=== PATIENT | female | born 1995 | race African-American/Black ===

== ENCOUNTER 2021-05-29 11:42 | Emergency (ER) | payer BC ==
[~2021-05-29] VITALS: Ht 157.5 cm; Wt 127.0 kg
[2021-05-29 12:17] LABS: ABSOLUTE NEUTROPHILS 2.9 thou/uL (1.4-8.2); BASOPHILS 1.2 % (0.0-2.0); EOSINOPHILS 1.7 % (0.0-3.0); HEMATOCRIT 39.2 % (37.0-47.0); LYMPHOCYTES 38.9 % (24.0-44.0); MCH 28.5 pg (26.0-34.0); MCHC 33.1 g/dL (28.0-37.0); MONOCYTES 8.6 % (1.0-8.0); PLATELET COUNT 371 thou/uL (150-400); POLYS 49.6 % (36.0-66.0); RBC 4.56 mil/uL (4.20-5.00); WBC 5.8 thou/uL (4.0-11.0)
[2021-05-29 12:34] LABS: CREATININE 0.8 mg/dL (0.6-1.0); POTASSIUM 3.7 mmol/L (3.5-5.1)
[2021-05-29 12:46] LABS: ALBUMIN 3.5 g/dL (3.4-5.0); MAGNESIUM 1.9 mg/dL (1.8-2.4); TOTAL BILIRUBIN 0.3 mg/dL (0.2-1.0); TOTAL PROTEIN 7.6 g/dL (6.4-8.2)
[2021-05-29 13:21] VITALS: BP 113/68
--- NOTE | 2021-06-01 07:14 | EKG ---
[place] [id number] [address] [facility] [email or web address] [address] ELECTROCARDIOGRAM REPORT Name: FLORENCIO RIVERA Room #: [facility] Stewart#: [id number] Admission: 05/29/21 Attend Phys: Discharge: 05/29/21 Date of : [birth year] Report #: [id number] [facility] ED Test Date: 2021-05-29 Test Time: 11:49:25 Pat Name: FLORENCIO RIVERA Department: Room: Gender: F Director Content Marketing: : 1995 Requested By: Zain Caceres Order Number: [id number] MD: Juliano Benjamin Measurements Intervals [place] Rate: 108 P: 56 LA: 118 QRS: -16 QRSD: 107 T: 146 QT: 322 QTc: 432 Interpretive Statements Sinus tachycardia Probable LVH with secondary repol abnrm Inferior infarct, old No previous ECG available for comparison Electronically Signed On 06-01-2021 7:14:21 [employer] by Juliano Benjamin [email or web address] <ELECTRONICALLY SIGNED> By: Juliano Benjamin MD, [facility] 06/01/21 0714 1149 1149 Juliano Benjamin MD, FACC /EPI
== END 2021-05-29 13:37 | disposition home or self-care (01) ==
LOC: ER 11:42
PROVIDERS: Emergency Medicine
DX: R07.89 Other chest pain (principal)